=== PATIENT | male | born 1995 | race Caucasian/White ===

== ENCOUNTER 2019-05-03 07:53 | Emergency (ER) | payer SELFPAY ==
[~2019-05-03] VITALS: Ht 182.9 cm; Wt 77.3 kg
[2019-05-03 09:34] VITALS: BP 111/88
== END 2019-05-03 09:37 | disposition home or self-care (01) ==
LOC: EMS 07:56
DX: J02.8 Acute pharyngitis due to other specified organisms (principal); F17.210 Nicotine dependence, cigarettes, uncomplicated
CPT/HCPCS: 99406